=== PATIENT | female | born 1975 | race Hispanic/Latino ===

== ENCOUNTER 2023-03-13 13:52 | Inpatient (IN) | payer MEDICAID ==
[~2023-03-13] VITALS: Ht 157.5 cm; Wt 58.6 kg
[2023-03-13] MEDS ORDERED: DILA100C PO (14:06)
[2023-03-13] MEDS ORDERED: SODIUM CHLORIDE 0.9% INJ 10 ML SYR IV PRN (15:55)
[2023-03-13 16:30] LABS: HEMATOCRIT 37.8 % (36.0-47.0); HEMOGLOBIN 12.2 g/dl (12.0-15.5); MEAN CORPUSCULAR HEMOGLOBIN 28.8 pg (27.0-33.0); MEAN CORPUSCULAR HGB CONC 32.3 g/dl (32.0-36.5); MEAN CORPUSCULAR VOLUME 89.4 fl (80.0-96.0); PLATELET COUNT, AUTOMATED 253 10^3/uL (150-450); RED BLOOD COUNT 4.23 10^6/uL (4.00-5.40); WHITE BLOOD COUNT 4.6 10^3/uL (4.0-10.0)
[2023-03-13 16:41] LABS: BLOOD UREA NITROGEN 17 MG/DL (9-23); CALCIUM LEVEL 8.8 MG/DL (8.5-10.1); CARBON DIOXIDE LEVEL 28 MMOL/L (20-31); CHLORIDE LEVEL 107 MMOL/L (98-107); CK-MB VALUE MASS < 1.0 NG/ML (<3.6); CPK CREATINE PHOSPHOKINASE 122 U/L (34-145); CREATININE FOR GFR 0.51 MG/DL (0.55-1.30); GLOMERULAR FILTRATION RATE > 60.0 (>58); GLUCOSE, FASTING 97 MG/DL (60-100); MB/CK RELATIVE INDEX 0.81 (< OR =4); SODIUM LEVEL 142 MMOL/L (136-145)
[2023-03-13 16:46] LABS: FREE T4 0.82 NG/DL (0.89-1.76); INR 1.01; THYROID STIMULATING HORMONE 2.326 uIU/ML (0.55-4.78)
[2023-03-13 16:47] LABS: PARTIAL THROMBOPLASTIN TIME 25.6 SECONDS (24.8-34.2)
[2023-03-13 17:10] LABS: ATYPICAL LYMPH 4 % (0-5); BASOPHILS 2 % (0-1); EOSINOPHILS 1 % (0-3); LYMPHOCYTES 41 % (16-44); MONOCYTES 2 % (0-5); NEUTROPHILS 50 % (28-66)
[2023-03-13 17:11] LABS: PLATELET ESTIMATE NORMAL (NORMAL)
[2023-03-13] MEDS ORDERED: LABETALOL 100MG/20ML VIAL IV STA ×2 (17:52→19:10)
[2023-03-13] MEDS ORDERED: ISOVUE-370 76% 100ML VIAL As Ordered ONE (18:14)
[2023-03-13] MEDS ORDERED: hydrALAZINE 20MG/ML 1ML VIAL IV ONE (21:30)
[2023-03-13] MEDS ORDERED: niCARdipine IV 40 MG in IV 1 EA IV SCH ×2 (21:50→21:55)
[2023-03-13] MEDS ORDERED: CAPTOpril 6.25 MG PER 1/2 TABLET PO SCH (22:00)
[2023-03-13 23:00] LABS: RSV AMPLIFICATION NEGATIVE (NEGATIVE)
[2023-03-13] MEDS ORDERED: AMBI10TA PO (23:39)
[2023-03-13] MEDS ORDERED: med rec comment (23:39)
[2023-03-13] MEDS ORDERED: LISI10TA22 PO (23:39)
[2023-03-13] MEDS ORDERED: HOME MED LIST COMPLETE! XX SCH (23:40)
[2023-03-13] MEDS ORDERED: hydrALAZINE 20MG/ML 1ML VIAL IV PRN (23:50)
[2023-03-14] VITALS (8 sets, daily range): BP systolic 127–180; BP diastolic 69–112; TEMP 96–100.1; O2SAT 97–99
[2023-03-14] MEDS ORDERED: CAPTOpril 6.25 MG PER 1/2 TABLET PO SCH (00:10)
[2023-03-14] MEDS ORDERED: ACETAMINOPHEN TAB 650MG DOSE (2X325MG) PO ONE (02:00)
[2023-03-14] MEDS ORDERED: zolPIDEM TARTRATE 5 MG TAB PO ONE ×2 (02:00→22:00)
[2023-03-14] MEDS ORDERED: METOPROLOL TART 25 MG TABLET PO SCH (06:00)
[2023-03-14 08:22] LABS: HEMATOCRIT 36.9 % (36.0-47.0); HEMOGLOBIN 12.3 g/dl (12.0-15.5); MEAN CORPUSCULAR HEMOGLOBIN 29.5 pg (27.0-33.0); MEAN CORPUSCULAR HGB CONC 33.3 g/dl (32.0-36.5); MEAN CORPUSCULAR VOLUME 88.5 fl (80.0-96.0); PLATELET COUNT, AUTOMATED 247 10^3/uL (150-450); RED BLOOD COUNT 4.17 10^6/uL (4.00-5.40); WHITE BLOOD COUNT 4.6 10^3/uL (4.0-10.0)
[2023-03-14 08:33] LABS: HEMOGLOBIN A1c 4.4 % (4.0-6.0)
[2023-03-14 08:52] LABS: BLOOD UREA NITROGEN 13 MG/DL (9-23); CALCIUM LEVEL 9.2 MG/DL (8.5-10.1); CARBON DIOXIDE LEVEL 28 MMOL/L (20-31); CHLORIDE LEVEL 107 MMOL/L (98-107); CHOLESTEROL RISK RATIO 1.97 (<5); CREATININE FOR GFR 0.56 MG/DL (0.55-1.30); GLOMERULAR FILTRATION RATE > 60.0 (>58); GLUCOSE, FASTING 98 MG/DL (60-100); HDL CHOLESTEROL 104.9 MG/DL (>40); LDL CHOLESTEROL 86.5 MG/DL (<100); NON-HDL-C 102.1 MG/DL; SODIUM LEVEL 143 MMOL/L (136-145)
[2023-03-14] MEDS ORDERED: NIRMATRELVIR/RITONAVIR CO-PACK (EMERGENCY USE AUTH) PO SCH (09:00)
[2023-03-14] MEDS ORDERED: SODIUM CHLORIDE 0.9% INJ 10 ML SYR IV SCH (09:00)
[2023-03-14] MEDS: PHENYTOIN ER 100 MG CAP PO SCH (09:16)
[2023-03-14] MEDS: ENOXAPARIN 40MG/0.4ML SYRINGE (J1650 PER 10MG) SC SCH (09:17)
[2023-03-14] MEDS: cloNIDine 0.1MG TABLET PO PRN (09:17)
[2023-03-14] MEDS ORDERED: LABETALOL 100MG TAB PO ONE (10:40)
[2023-03-15 00:30] VITALS: BP 171/91; TEMP 97.1; O2SAT 97
[2023-03-15] MEDS: cloNIDine 0.1MG TABLET PO PRN (00:58)
[2023-03-15 04:12] VITALS: BP 151/79; TEMP 97.5; O2SAT 97
[2023-03-15 07:47] VITALS: BP 145/88; O2SAT 99
[2023-03-15 08:13] VITALS: BP 145/85; TEMP 97; O2SAT 97
[2023-03-15 08:39] VITALS: BP 145/88
[2023-03-15] MEDS: PHENYTOIN ER 100 MG CAP PO SCH (08:39)
[2023-03-15] MEDS: ENOXAPARIN 40MG/0.4ML SYRINGE (J1650 PER 10MG) SC SCH (08:39)
[2023-03-15] MEDS ORDERED: AMLO10TA PO (08:56)
[2023-03-15] MEDS ORDERED: SELF1KIT MC (08:56)
[2023-03-15] MEDS ORDERED: METO25TA4 PO ×2 (08:56→09:51)
[2023-03-15] MEDS ORDERED: METOPROLOL TART 25 MG TABLET PO SCH (09:00)
[2023-03-15] MEDS ORDERED: AMBI10TA PO (09:49)
[2023-03-15] MEDS ORDERED: LISI20TA33 PO (09:53)
[2023-03-15 11:31] VITALS: BP 159/85; O2SAT 98
[2023-03-15] MEDS ORDERED: cloNIDine 0.1MG TABLET PO ONE (12:00)
== END 2023-03-15 13:57 | disposition home or self-care (01) | DRG 199 ==
LOC: M ED 13:52 → M ED INP 21:54 → M PCU 03-14 01:05
PROVIDERS: ADMIT Internal Medicine Pulmonary Disease; ATTEND General Practice
DX: I16.1 Hypertensive emergency (principal); U07.1 COVID-19; G40.909 Epilepsy, unspecified, not intractable, without status epilepticus; F41.9 Anxiety disorder, unspecified; F32.A Depression, unspecified; Z85.3 Personal history of malignant neoplasm of breast; Z92.21 Personal history of antineoplastic chemotherapy; G47.00 Insomnia, unspecified; Z79.899 Other long term (current) drug therapy; Z86.73 Personal history of transient ischemic attack (TIA), and cerebral infarction without residual deficits